=== PATIENT | male | born 1990 | race Caucasian/White ===

== ENCOUNTER 2018-09-22 09:26 | Inpatient (IN) ==
[2018-09-22] MEDS ORDERED: MOTRIN PO PRN (11:35)
[2018-09-22] MEDS ORDERED: ZOFRAN IV PRN (11:35)
[2018-09-22] MEDS ORDERED: MAALOX PLUS LIQUID PO PRN (11:35)
[2018-09-22] MEDS ORDERED: LIBRIUM PO PRN (11:35)
[2018-09-22] MEDS ORDERED: PHENOBARBITAL IV PRN (11:35)
[2018-09-22] MEDS ORDERED: D5W 1,000 ML IV PRN (11:35)
[2018-09-22] MEDS ORDERED: TYLENOL PO PRN (11:35)
[2018-09-22] MEDS ORDERED: BENTYL PO PRN (11:35)
[2018-09-22] MEDS ORDERED: SEROQUEL PO PRN (11:35)
[2018-09-22] MEDS ORDERED: SINEMET 25/100 PO PRN (11:35)
[2018-09-22] MEDS ORDERED: NICODERM PATCH TD PRN (11:35)
[2018-09-22] MEDS ORDERED: ZOFRAN ODT PO PRN (11:35)
[2018-09-22] MEDS ORDERED: DULCOLAX PR PRN (11:35)
[2018-09-22] MEDS ORDERED: IMODIUM PO PRN (11:35)
[2018-09-22] MEDS ORDERED: DESYREL PO PRN (11:35)
[2018-09-22] MEDS ORDERED: ATARAX PO PRN (11:35)
[2018-09-22] MEDS ORDERED: SENOKOT PO PRN (11:35)
[2018-09-22] MEDS ORDERED: TUBERSOL ID ONE (12:00)
[2018-09-22 12:05] LABS: UR AMPHETAMINES QUAL PRESUMPTIVE POSITIVE (NONE DETECT)
[2018-09-22 12:06] LABS: UR BARBITUATES QUAL NONE DETECTED (NONE DETECT); UR BENZODIAZEPIN QUAL PRESUMPTIVE POSITIVE (NONE DETECT); UR CANNABINOIDS QUAL NONE DETECTED (NONE DETECT); UR COCAINE QUAL NONE DETECTED (NONE DETECT); UR METHADONE QUAL NONE DETECTED (NONE DETECT); UR METHAMPHETAMINE QUAL PRESUMPTIVE POSITIVE (NONE DETECT); UR OPIATES QUAL PRESUMPTIVE POSITIVE (NONE DETECT); UR OXYCODONE QUAL NONE DETECTED (NONE DETECT); UR PCP QUAL NONE DETECTED (NONE DETECT); UR PROPOXYPHENE QUAL NONE DETECTED (NONE DETECT); UR TCA QUAL NONE DETECTED (NONE DETECT)
[2018-09-22 12:07] LABS: URINE SOURCE VOIDED
[2018-09-22] MEDS: LIBRIUM PO SCH ×2 (12:13→18:26)
[2018-09-22 12:17] LABS: BILIRUBIN URINE NEGATIVE (NEGATIVE); BLOOD URINE NEGATIVE (NEGATIVE); CLARITY CLEAR (CLEAR); COLOR YELLOW; GLUCOSE URINE NEGATIVE (NEGATIVE); KETONE URINE TRACE mg/dL (NEGATIVE); NITRITE URINE POSITIVE (NEGATIVE); PH URINE 6.5; PROTEIN URINE TRACE mg/dL (NEGATIVE); SP GRAVITY URINE 1.015; UROBILINOGEN URINE NORMAL
[2018-09-22 12:18] LABS: LEUKOCYTES URINE TRACE (NEGATIVE); URINE BACTERIA 1+ /HFP; URINE CAST NONE SEEN /LPF; URINE CRYSTAL NONE SEEN /HPF; URINE EPITHELIAL CELLS <10 /HPF (<10); URINE RBC <10 /HPF (<10); URINE WBC <10 /HPF (<10); URINE YEAST NONE SEEN /HPF
[2018-09-22 12:41] LABS: AMYLASE 38 U/L (20-200); LIPASE 15 U/L (13-60)
[2018-09-22] MEDS: ROBAXIN PO PRN (21:03)
[2018-09-23] MEDS: LIBRIUM PO SCH ×4 (00:34→19:55)
[2018-09-23] MEDS: ROBAXIN PO PRN (03:52)
[2018-09-23] MEDS ORDERED: PROTONIX PO SCH (07:00)
[2018-09-23] MEDS ORDERED: VITAMIN B-1 PO SCH (09:00)
[2018-09-23] MEDS ORDERED: THERA M PLUS PO SCH (09:00)
[2018-09-23] MEDS ORDERED: FOLIC ACID PO SCH (09:00)
[2018-09-23 11:38] VITALS: BP 142/83
--- NOTE | 2018-09-24 18:54 | PROGRESS NOTE ---
DATE: 09/23/2018 Patient seen and examined in the morning on the . SUBJECTIVE: The patient notes that he is feeling a little bit better still having some muscle aches. Notes he did not sleep well last night. Denies any current tremors or fevers. Denies any GI or issues currently. PHYSICAL EXAMINATION: Vital Signs: Reviewed. He is awake. He is in no current respiratory distress. HEENT: Normocephalic. Neck: Supple. CARDIOVASCULAR: Regular rate. Respiratory: Chest clear, nonlabored. Abdomen: Soft, nondistended. Extremities: Moves all extremities. ASSESSMENT: 1. Nausea and vomiting. 2. Abdominal pain. 3. Myalgias. 4. Paresthesias. 5. Opiate abuse withdrawal and continued stabilization. PLAN: We will continue patient in the hospital, continue counseling, continue symptomatic care. Hopefully, he can discharge over the next few days. cc: Ta Bridges MD
--- NOTE | 2018-09-24 19:03 | HISTORY AND PHYSICAL ---
CHIEF COMPLAINT: Nausea and vomiting. HISTORY OF PRESENT ILLNESS: The patient is a 28-year-old male who presented to [facility] program secondary to nausea, vomiting, abdominal pain, myalgias and paresthesias. SOCIAL HISTORY: The patient is . He is currently employed at [employer] in [place]. PAST MEDICAL HISTORY: History of overdose in 2017, history of DTs. 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 MEDICATIONS: Suboxone 8 mg twice daily, Xanax 1 mg 3 times daily, Vyvanse 40 mg daily. ALLERGIES: Omnicef. REVIEW OF SYSTEMS: CINA score is 9 secondary to abdominal pain, myalgias, diarrhea, frequent changes in temperature, frequent sweating, having frequent episodes of anxiety. Denies any fevers or chills. Denies any chest pain or palpitations. Denies dysuria, frequency or urgency. Denies constipation or melena. Denies any skin rashes, weight loss or weight gain. SUBSTANCE ABUSE HISTORY: The patient was in [place] for 21 days in 2011 and relapsed. He was in [facility] in 2014 for 2 months and relapsed. He was at [facility] in 03/2008 and left after 15 minutes, and of course relapsed almost immediately. This time he states that he was at [facility], but left after 2 months and decided he wanted to get clean. Alcohol: Started drinking at age 16, currently drinks a couple of beers a day. Benzodiazepines started at age 27, currently taking 2-3 mg 3-4 times daily. Methamphetamine started at age 27, currently using 3-4 times a week and 3-4 times a month he will use IV. Opiates: Started at age 16, was on Roxicodone and Lortab, progressed to IV heroin. Now he is down to less than a gram a day. FAMILY HISTORY: Noncontributory. PHYSICAL EXAMINATION: VITAL SIGNS: Reviewed. GENERAL: He is awake, alert. He is in no current respiratory distress. HEENT: Normocephalic. NECK: Supple. CARDIOVASCULAR: Regular rate. CHEST: Clear. ABDOMEN: Soft. EXTREMITIES: Moves all extremities. ASSESSMENT: 1. Nausea and vomiting. 2. Abdominal pain. 3. Myalgias. 4. Paresthesias. 5. Polysubstance use and abuse, with multiple failed outpatient treatments. PLAN: We will admit the patient to the hospital, as his plan is to get off of everything. We will place him on Librium. We will use Suboxone only as needed. We will continue counseling. Further orders as needed. cc: Ta Bridges MD
--- NOTE | 2018-09-25 06:04 | DISCHARGE SUMMARY ---
ADMISSION DATE: 09/22/2018 DISCHARGE DATE: 09/23/2018 The patient left the hospital much earlier than he should have. He states that he has called his primary doctor who agreed to wean him down off Librium at home over the next 2 weeks. I certainly think this may be an attempt to continue to abuse, as he has done this multiple times in the past as evidenced on the HPI when he relapsed after [place], relapsed after [facility], and left [facility] last year after 15 minutes. He has continued to relapse and abuse polysubstances at home. The patient should not be on any narcotics at home, given his history. DISCHARGE DIAGNOSES: 1. Nausea and vomiting. 2. Extreme medical noncompliance. 3. Abdominal pain. 4. Myalgias. 5. Paroxysmal sweating. 6. Polysubstance use and abuse. CONSULTATIONS: None. PROCEDURE: None. BRIEF HOSPITAL COURSE: The patient is a 28-year-old male who was readmitted to the hospital secondary to his significant withdrawal symptoms. He was placed on Librium. We had planned on continuing to taper this down over several days and to start him on naltrexone in an attempt to help him with medication-assisted therapy. DISPOSITION: The patient, as noted above, decided to leave the hospital much earlier than expected. His primary care has, according to Mr. Cadet, agreed to taper him on Librium over 2 weeks. Unfortunately, as Mr. Cadet left the hospital earlier than expected, he was not given a prescription for naltrexone. Hopefully, his primary care understands and will assist him with this as he weans down from on Librium. I certainly believe that he needs some type of medication-assisted therapy as well as outpatient counseling if he is going to attempt to stay sober. cc: Ta Bridges MD
== END 2018-09-23 20:04 | disposition home or self-care (01) | DRG 897 ==
LOC: P.DIRADM 10:08 → P.MEDSURG 10:35
PROVIDERS: ADMIT Family Medicine; ATTEND Family Medicine
CPT/HCPCS: 80104; 80301; 80305; 80307; 80320; 81001; 82055; 82150; 83690; A9270; G0431; G0434; G0477; G0480; G6040